=== PATIENT | male | born 1965 | race Caucasian/White ===

== ENCOUNTER 2021-08-12 19:48 | Emergency (ER) | payer SELFPAY ==
[~2021-08-12 19:48] MED LIST: ISOVUE-370 76%-LOCM 1 ML ONE
[2021-08-12 20:31] LABS: #Eosinphils 0.1 thou/uL (0.0-0.7); #Lymphocytes 1.3 thou/uL (1.20-3.40); #Monocytes 0.5 thou/uL (0.11-0.59); #Neutrophils 6.5 thou/uL (1.40-6.50); %Basophils 0.5 % (0.0-1.0); %Eosinophils 0.8 % (0.0-10.0); %Lymphocytes 15.9 % (21.0-51.0); %Monocytes 5.4 % (0.0-10.0); %Neutrophils 77.4 % (42.0-75.0); Hemoglobin 15.2 g/dL (14.0-18.0); Mean Corpuscular HGB CONC 34.8 g/dL (32.0-36.0); Mean Corpuscular Hemoglobin 32.8 pg (27.0-31.0); Mean Corpuscular Volume 94.2 fL (78.0-98.0); Mean Platelet Volume 7.7 fL (7.4-10.4); Platelet Count 222 thou/uL (130-400); RBC Distribution Width 12.2 % (11.5-14.5); Red Blood Cell (RBC) Count 4.64 mill/uL (4.70-6.10); White Blood Cell (WBC) Count 8.4 thou/uL (4.8-10.8)
[2021-08-12 20:59] LABS: Albumin 4.1 g/dL (3.5-5.0)
[2021-08-12 21:00] LABS: Chloride 108 mmol/L (98-107); Potassium 3.5 mmol/L (3.5-5.1); Sodium 141 mmol/L (136-145)
[2021-08-12 21:01] LABS: Calcium 9.2 mg/dL (7.8-10.44); Globulin 3.4 g/dL (2.4-3.5); Glucose 100 mg/dL (70-105); Protein, Total 7.5 g/dL (6.0-8.3)
[2021-08-12 21:03] LABS: Anion Gap 13 mmol/L (10-20); Bilirubin, Total 1.2 mg/dL (0.2-1.2); Carbon Dioxide 24 mmol/L (22-29)
[2021-08-12 21:04] LABS: Alkaline Phosphatase 59 U/L (40-110)
[2021-08-12 21:05] LABS: BUN (Urea Nitrogen) 20 mg/dL (8.4-25.7); Calc. Creatinine Clearance 0 mL/min (70-130)
[2021-08-12 21:06] LABS: AST (SGOT) 26 U/L (5-34)
[2021-08-12 21:07] LABS: ALT (SGPT) 21 U/L (8-55); Lipase 29 U/L (8-78)
== END 2021-08-12 23:11 | disposition home or self-care (01) ==
LOC: ERS 19:48
DX: K43.9 Ventral hernia without obstruction or gangrene (principal); I49.3 Ventricular premature depolarization; Z79.82 Long term (current) use of aspirin; Z79.899 Other long term (current) drug therapy
CPT/HCPCS: 36415; 74177; 80053; 83690; 84484; 85025; 93005; Q9966

== ENCOUNTER 2021-08-14 02:56 | Emergency (ER) | payer SELFPAY ==
[2021-08-14] MEDS ORDERED: Acetaminophen 325 MG TAB ONE (03:40)
== END 2021-08-14 03:43 | disposition home or self-care (01) ==
LOC: ERS 02:56
DX: G47.00 Insomnia, unspecified (principal); Z59.00 Homelessness unspecified; I10 Essential (primary) hypertension; K21.9 Gastro-esophageal reflux disease without esophagitis; Z79.899 Other long term (current) drug therapy
CPT/HCPCS: 99281

== ENCOUNTER 2021-09-13 22:45 | Emergency (ER) | payer MEDICARE, SELFPAY ==
[2021-09-14 00:02] LABS: #Basophils 0.1 thou/uL (0.0-0.2); #Eosinphils 0.3 thou/uL (0.0-0.7); #Lymphocytes 1.4 thou/uL (1.20-3.40); #Monocytes 0.4 thou/uL (0.11-0.59); #Neutrophils 3.7 thou/uL (1.40-6.50); %Basophils 0.9 % (0.0-1.0); %Eosinophils 4.7 % (0.0-10.0); %Neutrophils 64.4 % (42.0-75.0); Hemoglobin 14.4 g/dL (14.0-18.0); Mean Corpuscular HGB CONC 35.8 g/dL (32.0-36.0); Mean Corpuscular Hemoglobin 33.6 pg (27.0-31.0); Mean Corpuscular Volume 93.9 fL (78.0-98.0); Mean Platelet Volume 8.3 fL (7.4-10.4); Platelet Count 156 thou/uL (130-400); Red Blood Cell (RBC) Count 4.28 mill/uL (4.70-6.10); White Blood Cell (WBC) Count 5.8 thou/uL (4.8-10.8)
[2021-09-14 00:20] LABS: ALT (SGPT) 13 U/L (8-55); AST (SGOT) 15 U/L (5-34); Albumin 3.6 g/dL (3.5-5.0); Alkaline Phosphatase 56 U/L (40-110); Anion Gap 16 mmol/L (10-20); BUN (Urea Nitrogen) 9 mg/dL (8.4-25.7); Bilirubin, Total 0.8 mg/dL (0.2-1.2); Calc. Creatinine Clearance 0 mL/min (70-130); Calcium 8.5 mg/dL (7.8-10.44); Carbon Dioxide 21 mmol/L (22-29); Chloride 104 mmol/L (98-107); Estimated GFR 107; Globulin 2.8 g/dL (2.4-3.5); Glucose 103 mg/dL (70-105); Potassium 3.1 mmol/L (3.5-5.1); Protein, Total 6.4 g/dL (6.0-8.3); Sodium 138 mmol/L (136-145)
[2021-09-14] MEDS ORDERED: Ketorolac Tromethamine 30 MG/ML VIAL ONE (01:42)
== END 2021-09-14 01:58 | disposition home or self-care (01) ==
LOC: ERS 22:45
DX: R07.9 Chest pain, unspecified (principal); I10 Essential (primary) hypertension; I48.91 Unspecified atrial fibrillation; K21.9 Gastro-esophageal reflux disease without esophagitis; J45.909 Unspecified asthma, uncomplicated; Z79.899 Other long term (current) drug therapy
CPT/HCPCS: 36415; 71045; 80053; 84484; 85025; 93005; 94760; 96374; J1885

== ENCOUNTER 2021-09-24 02:49 | Emergency (ER) | payer MEDICARE ==
[2021-09-24] MEDS ORDERED: Diazepam 5 MG TAB ONE (03:07)
[2021-09-24] MEDS ORDERED: Ketorolac Tromethamine 30 MG/ML VIAL ONE (03:40)
[2021-09-24 04:03] LABS: #Eosinphils 0.3 thou/uL (0.0-0.7); #Lymphocytes 1.6 thou/uL (1.20-3.40); #Monocytes 0.4 thou/uL (0.11-0.59); #Neutrophils 4.3 thou/uL (1.40-6.50); %Basophils 0.4 % (0.0-1.0); %Lymphocytes 24.9 % (21.0-51.0); %Monocytes 5.5 % (0.0-10.0); %Neutrophils 65.2 % (42.0-75.0); Hemoglobin 14.1 g/dL (14.0-18.0); Mean Corpuscular HGB CONC 35.6 g/dL (32.0-36.0); Mean Corpuscular Hemoglobin 33.6 pg (27.0-31.0); Mean Corpuscular Volume 94.3 fL (78.0-98.0); Mean Platelet Volume 8.8 fL (7.4-10.4); Platelet Count 155 thou/uL (130-400); RBC Distribution Width 12.3 % (11.5-14.5); Red Blood Cell (RBC) Count 4.21 mill/uL (4.70-6.10); White Blood Cell (WBC) Count 6.5 thou/uL (4.8-10.8)
[2021-09-24 04:28] LABS: ALT (SGPT) 13 U/L (8-55); AST (SGOT) 19 U/L (5-34); Albumin 4.1 g/dL (3.5-5.0); Alkaline Phosphatase 49 U/L (40-110); Anion Gap 13 mmol/L (10-20); BUN (Urea Nitrogen) 27 mg/dL (8.4-25.7); Bilirubin, Total 1.2 mg/dL (0.2-1.2); Calc. Creatinine Clearance 0 mL/min (70-130); Calcium 9.1 mg/dL (7.8-10.44); Carbon Dioxide 30 mmol/L (22-29); Chloride 104 mmol/L (98-107); Estimated GFR 69; Glucose 93 mg/dL (70-105); Protein, Total 7.1 g/dL (6.0-8.3); Sodium 144 mmol/L (136-145)
[2021-09-24 04:37] LABS: Potassium 2.8 mmol/L (3.5-5.1)
[2021-09-24] MEDS ORDERED: Potassium Chloride 20 MEQ TAB ONE (04:50)
== END 2021-09-24 05:18 | disposition home or self-care (01) ==
LOC: ERS 02:49
DX: M17.12 Unilateral primary osteoarthritis, left knee (principal); E87.6 Hypokalemia; I10 Essential (primary) hypertension; I48.91 Unspecified atrial fibrillation; K21.9 Gastro-esophageal reflux disease without esophagitis; J45.909 Unspecified asthma, uncomplicated; M06.9 Rheumatoid arthritis, unspecified; Z79.82 Long term (current) use of aspirin; Z79.899 Other long term (current) drug therapy
CPT/HCPCS: 36415; 72170; 80053; 84443; 85025; 96372; J1885

== ENCOUNTER 2021-09-27 19:01 | Emergency (ER) | payer MEDICARE ==
[2021-09-27] MEDS ORDERED: HYDROcodone/Acetaminophen 10/325 mg Tablet ONE (19:45)
[2021-09-27 20:13] LABS: Bilirubin Negative (Negative); Blood, Urine Negative (Negative); Clarity Clear (Clear); Glucose, Urine (Dipstick) Normal (Negative); Ketone, Urine Negative (Negative); Leukocyte Negative Leu/uL (Negative); Nitrite Negative (Negative); Protein, Urine (Dipstick) Negative (Neg-Trace); Specific Gravity, Urine 1.014 (1.002-1.036); Urobilinogen Normal mg/dL (Less than 2)
[2021-09-27 20:20] LABS: #Eosinphils 0.2 thou/uL (0.0-0.7); #Lymphocytes 1.3 thou/uL (1.20-3.40); #Monocytes 0.2 thou/uL (0.11-0.59); #Neutrophils 3.9 thou/uL (1.40-6.50); %Basophils 0.6 % (0.0-1.0); %Eosinophils 3.7 % (0.0-10.0); %Lymphocytes 22.7 % (21.0-51.0); %Monocytes 3.7 % (0.0-10.0); %Neutrophils 69.2 % (42.0-75.0); Hemoglobin 13.7 g/dL (14.0-18.0); Mean Corpuscular HGB CONC 34.6 g/dL (32.0-36.0); Mean Corpuscular Hemoglobin 32.4 pg (27.0-31.0); Mean Corpuscular Volume 93.7 fL (78.0-98.0); Mean Platelet Volume 8.8 fL (7.4-10.4); Platelet Count 145 thou/uL (130-400); RBC Distribution Width 11.9 % (11.5-14.5); Red Blood Cell (RBC) Count 4.21 mill/uL (4.70-6.10); White Blood Cell (WBC) Count 5.6 thou/uL (4.8-10.8)
[2021-09-27 20:41] LABS: ALT (SGPT) 11 U/L (8-55); AST (SGOT) 20 U/L (5-34); Albumin 3.9 g/dL (3.5-5.0); Alkaline Phosphatase 52 U/L (40-110); Anion Gap 11 mmol/L (10-20); BUN (Urea Nitrogen) 12 mg/dL (8.4-25.7); Bilirubin, Total 0.7 mg/dL (0.2-1.2); Calc. Creatinine Clearance 0 mL/min (70-130); Carbon Dioxide 32 mmol/L (22-29); Chloride 101 mmol/L (98-107); Estimated GFR 100; Globulin 2.8 g/dL (2.4-3.5); Glucose 95 mg/dL (70-105); Potassium 3.5 mmol/L (3.5-5.1); Protein, Total 6.7 g/dL (6.0-8.3); Sodium 140 mmol/L (136-145)
== END 2021-09-27 21:45 | disposition home or self-care (01) ==
LOC: ERS 19:01
DX: K42.9 Umbilical hernia without obstruction or gangrene (principal); K43.2 Incisional hernia without obstruction or gangrene; I10 Essential (primary) hypertension; K21.9 Gastro-esophageal reflux disease without esophagitis; I48.91 Unspecified atrial fibrillation; Z79.82 Long term (current) use of aspirin; Z79.899 Other long term (current) drug therapy
CPT/HCPCS: 36415; 80053; 81003; 85025; 99284

== ENCOUNTER 2021-10-02 17:57 | Emergency (ER) | payer MEDICARE ==
[2021-10-02 20:16] LABS: #Eosinphils 0.4 thou/uL (0.0-0.7); #Lymphocytes 1.3 thou/uL (1.20-3.40); #Monocytes 0.3 thou/uL (0.11-0.59); #Neutrophils 3.5 thou/uL (1.40-6.50); %Basophils 0.3 % (0.0-1.0); %Eosinophils 7.3 % (0.0-10.0); %Lymphocytes 23.8 % (21.0-51.0); %Monocytes 4.8 % (0.0-10.0); %Neutrophils 63.7 % (42.0-75.0); Hemoglobin 12.9 g/dL (14.0-18.0); Mean Corpuscular HGB CONC 33.6 g/dL (32.0-36.0); Mean Corpuscular Volume 95.2 fL (78.0-98.0); Mean Platelet Volume 8.6 fL (7.4-10.4); Platelet Count 177 thou/uL (130-400); RBC Distribution Width 11.9 % (11.5-14.5); Red Blood Cell (RBC) Count 4.03 mill/uL (4.70-6.10); White Blood Cell (WBC) Count 5.5 thou/uL (4.8-10.8)
[2021-10-02 20:44] LABS: ALT (SGPT) 24 U/L (8-55); AST (SGOT) 26 U/L (5-34); Albumin 3.9 g/dL (3.5-5.0); Alkaline Phosphatase 57 U/L (40-110); Anion Gap 11 mmol/L (10-20); BUN (Urea Nitrogen) 15 mg/dL (8.4-25.7); Bilirubin, Total 0.5 mg/dL (0.2-1.2); Calc. Creatinine Clearance 0 mL/min (70-130); Calcium 9.1 mg/dL (7.8-10.44); Carbon Dioxide 29 mmol/L (22-29); Chloride 104 mmol/L (98-107); Estimated GFR 102; Globulin 2.7 g/dL (2.4-3.5); Glucose 86 mg/dL (70-105); Protein, Total 6.6 g/dL (6.0-8.3); Sodium 140 mmol/L (136-145)
== END 2021-10-02 21:15 | disposition home or self-care (01) ==
LOC: ERS 17:57
DX: R42 Dizziness and giddiness (principal); K21.9 Gastro-esophageal reflux disease without esophagitis; I10 Essential (primary) hypertension; M06.9 Rheumatoid arthritis, unspecified; Z79.899 Other long term (current) drug therapy
CPT/HCPCS: 36415; 80053; 84484; 85025; 93005

== ENCOUNTER 2021-11-10 01:22 | Emergency (ER) | payer MEDICARE ==
[2021-11-10] MEDS ORDERED: Ondansetron PF 4 MG/2 ML Vial ONE (02:43)
[2021-11-10 03:27] LABS: #Eosinphils 0.3 thou/uL (0.0-0.7); #Lymphocytes 1.6 thou/uL (1.20-3.40); #Monocytes 0.5 thou/uL (0.11-0.59); %Basophils 0.3 % (0.0-1.0); %Lymphocytes 15.2 % (21.0-51.0); %Monocytes 4.7 % (0.0-10.0); %Neutrophils 76.8 % (42.0-75.0); Hemoglobin 14.8 g/dL (14.0-18.0); Mean Corpuscular HGB CONC 36.5 g/dL (32.0-36.0); Mean Corpuscular Hemoglobin 34.1 pg (27.0-31.0); Mean Corpuscular Volume 93.4 fL (78.0-98.0); Mean Platelet Volume 8.2 fL (7.4-10.4); Platelet Count 184 thou/uL (130-400); Red Blood Cell (RBC) Count 4.34 mill/uL (4.70-6.10); White Blood Cell (WBC) Count 10.4 thou/uL (4.8-10.8)
[2021-11-10 03:41] LABS: ALT (SGPT) 33 U/L (8-55); AST (SGOT) 26 U/L (5-34); Albumin 3.8 g/dL (3.5-5.0); Alkaline Phosphatase 56 U/L (40-110); Anion Gap 13 mmol/L (10-20); BUN (Urea Nitrogen) 21 mg/dL (8.4-25.7); Bilirubin, Total 0.8 mg/dL (0.2-1.2); Calc. Creatinine Clearance 0 mL/min (70-130); Calcium 8.8 mg/dL (7.8-10.44); Carbon Dioxide 24 mmol/L (22-29); Chloride 103 mmol/L (98-107); Estimated GFR 100; Globulin 2.9 g/dL (2.4-3.5); Glucose 95 mg/dL (70-105); Lipase 102 U/L (8-78); Potassium 3.3 mmol/L (3.5-5.1); Protein, Total 6.7 g/dL (6.0-8.3); Sodium 137 mmol/L (136-145)
[2021-11-10] MEDS ORDERED: Iopamidol-370 76% 500 ML 1 ML ONE (09:10)
== END 2021-11-10 06:08 | disposition home or self-care (01) ==
LOC: ERS 01:22
DX: R10.31 Right lower quadrant pain (principal); I10 Essential (primary) hypertension; K21.9 Gastro-esophageal reflux disease without esophagitis; Z79.899 Other long term (current) drug therapy
CPT/HCPCS: 74177; 80053; 83690; 85025; 93005; 96374; J2405; Q9967

== ENCOUNTER 2022-05-23 12:01 | Emergency (ER) | payer MEDICARE ==
[2022-05-23 13:36] LABS: #Eosinphils 0.2 thou/uL (0.0-0.7); #Monocytes 0.4 thou/uL (0.11-0.59); #Neutrophils 3.9 thou/uL (1.40-6.50); %Basophils 0.4 % (0.0-1.0); %Eosinophils 4.1 % (0.0-10.0); %Lymphocytes 18.7 % (21.0-51.0); %Monocytes 6.4 % (0.0-10.0); %Neutrophils 70.4 % (42.0-75.0); Hemoglobin 13.6 g/dL (14.0-18.0); Mean Corpuscular Hemoglobin 32.7 pg (27.0-31.0); Mean Corpuscular Volume 93.5 fl (78.0-98.0); Platelet Count 181 10x3/uL (130-400); RBC Distribution Width 12.2 % (11.5-14.5); Red Blood Cell (RBC) Count 4.16 mill/uL (4.70-6.10); White Blood Cell (WBC) Count 5.6 10x3/uL (4.8-10.8)
[2022-05-23 13:59] LABS: ALT (SGPT) 18 U/L (8-55); AST (SGOT) 22 U/L (5-34); Albumin 4.1 g/dL (3.5-5.0); Alkaline Phosphatase 60 U/L (40-110); Anion Gap 11 mmol/L (10-20); BUN (Urea Nitrogen) 12 mg/dL (8.4-25.7); Bilirubin, Total 0.4 mg/dL (0.2-1.2); Calc. Creatinine Clearance 0 mL/min (70-130); Calcium 9.2 mg/dL (7.8-10.44); Carbon Dioxide 26 mmol/L (22-29); Chloride 105 mmol/L (98-107); Estimated GFR 105; Globulin 2.9 g/dL (2.4-3.5); Glucose 86 mg/dL (70-105); Lipase 28 U/L (8-78); Potassium 4.1 mmol/L (3.5-5.1); Sodium 138 mmol/L (136-145)
== END 2022-05-23 17:33 | disposition home or self-care (01) ==
LOC: ERS 12:01
DX: R10.9 Unspecified abdominal pain (principal); I10 Essential (primary) hypertension; I48.91 Unspecified atrial fibrillation; K21.9 Gastro-esophageal reflux disease without esophagitis; Z79.899 Other long term (current) drug therapy
CPT/HCPCS: 36415; 71045; 80053; 83690; 84484; 85025; 93005

== ENCOUNTER 2023-11-07 12:45 | Observation (INO) | payer MEDICARE ==
[2023-11-07] MEDS ORDERED: Nitroglycerin 2% Ointment 1 INCH/1 GM Packet ONE (13:11)
[2023-11-07] MEDS ORDERED: Aspirin Chewable 81 MG TAB ONE (13:11)
[2023-11-07 13:15] LABS: #Basophils 0.03 10x3/uL (0.0-0.2); %Basophils 0.5 % (0.0-1.0); %Eosinophils 2.4 % (0.0-10.0); %Lymphocytes 24.5 % (21.0-51.0); %Monocytes 6.7 % (0.0-10.0); %Neutrophils 65.7 % (42.0-75.0); Hematocrit 40.6 % (42.0-52.0); Hemoglobin 14.9 g/dL (14.0-18.0); Mean Corpuscular HGB CONC 36.7 g/dL (32.0-36.0); Mean Corpuscular Hemoglobin 32.4 pg (27.0-31.0); Mean Corpuscular Volume 88.3 fL (78.0-98.0); Mean Platelet Volume 10.6 fL (7.4-10.4); Platelet Count 205 10x3/uL (130-400); RBC Distribution Width 12.4 % (11.5-14.5)
[2023-11-07 13:24] LABS: ALT (SGPT) 14 U/L (8-55); AST (SGOT) 20 U/L (5-34); Albumin 4.2 g/dL (3.5-5.0); Alkaline Phosphatase 55 U/L (40-110); Anion Gap 13 mmol/L (10-20); BUN (Urea Nitrogen) 17 mg/dL (8.4-25.7); Bilirubin, Total 0.8 mg/dL (0.2-1.2); Calc. Creatinine Clearance 0 mL/min (70-130); Calcium 8.7 mg/dL (7.8-10.44); Carbon Dioxide 24 mmol/L (22-29); Chloride 107 mmol/L (98-107); Estimated GFR 91; Globulin 3.4 g/dL (2.4-3.5); Glucose 98 mg/dL (70-105); Lipase 175 U/L (8-78); Potassium 3.3 mmol/L (3.5-5.1); Protein, Total 7.6 g/dL (6.0-8.3); Sodium 141 mmol/L (136-145)
[2023-11-07 13:29] LABS: Troponin I Less than 0.010 ng/mL (< 0.028)
[2023-11-07] MEDS ORDERED: Metoprolol Tartrate 5 MG (5 mL) VIAL ONE (13:57)
[2023-11-07] MEDS ORDERED: Metoprolol Tartrate 5 MG (5 mL) VIAL IVP PRN (15:52)
[2023-11-07] MEDS ORDERED: Nitroglycerin 0.4 MG TAB (25 Tab Bottle) SL PRN (15:52)
[2023-11-07 16:45] LABS: Magnesium 1.9 mg/dL (1.6-2.6)
[2023-11-07 16:55] LABS: Troponin I 0.015 ng/mL (< 0.028)
[2023-11-07] MEDS: Magnesium 2 GM/50 ML(in water) 2 GM in Premix 1 BAG IVPB SCH (18:29)
[2023-11-07] MEDS: Potassium Chloride 20 MEQ TAB PO SCH (18:29)
[2023-11-07] MEDS: Metoprolol Tartrate 25 MG TAB PO SCH (21:29)
[2023-11-08 05:45] LABS: Lipase 77 U/L (8-78); Magnesium 2.3 mg/dL (1.6-2.6); Potassium 3.3 mmol/L (3.5-5.1)
[2023-11-08] MEDS ORDERED: Aspirin 81 mg Enteric Coated Tablet PO SCH (09:00)
[2023-11-08] MEDS ORDERED: Regadenoson 0.4 MG/5 ML SYRINGE ONE (10:27)
[2023-11-08] MEDS: Aspirin 325 mg Enteric Coated Tablet PO SCH (12:01)
[2023-11-08] MEDS: Potassium Chloride 20 MEQ TAB PO SCH (12:03)
[2023-11-08 12:39] VITALS: BP 175/88; TEMP 97.8
== END 2023-11-08 16:03 | disposition home or self-care (01) ==
LOC: ERS 12:45 → 2SW 16:51
PROVIDERS: ADMIT Internal Medicine; ATTEND Internal Medicine
DX: R07.2 Precordial pain (principal); I48.0 Paroxysmal atrial fibrillation; J45.909 Unspecified asthma, uncomplicated; I10 Essential (primary) hypertension; E87.6 Hypokalemia; K21.9 Gastro-esophageal reflux disease without esophagitis; F41.9 Anxiety disorder, unspecified; Z90.49 Acquired absence of other specified parts of digestive tract; Z98.890 Other specified postprocedural states; Z79.82 Long term (current) use of aspirin
CPT/HCPCS: 71045; 78452; 80053; 83690 ×2; 83735 ×2; 83880; 84132; 84484 ×2; 85025; 93005; 93017; 96374; 96376; 99285; A9502; G0378 ×3; J2785 ×2; J3475; 36415

== ENCOUNTER 2024-03-14 01:44 | Emergency (ER) | payer MEDICARE ==
[2024-03-14] MEDS ORDERED: hydrALAZINE 20 MG/ML VIAL ONE (01:54)
[2024-03-14] MEDS ORDERED: Nitroglycerin 2% Ointment 1 INCH/1 GM Packet ONE (01:55)
[2024-03-14 02:30] LABS: #Basophils 0.04 10x3/uL (0.0-0.2); %Basophils 0.7 % (0.0-1.0); %Eosinophils 4.4 % (0.0-10.0); %Lymphocytes 24.1 % (21.0-51.0); %Monocytes 7.5 % (0.0-10.0); %Neutrophils 62.9 % (42.0-75.0); Hematocrit 41.8 % (42.0-52.0); Hemoglobin 15.2 g/dL (14.0-18.0); Mean Corpuscular HGB CONC 36.4 g/dL (32.0-36.0); Mean Corpuscular Hemoglobin 32.4 pg (27.0-31.0); Mean Corpuscular Volume 89.1 fL (78.0-98.0); Mean Platelet Volume 10.5 fL (7.4-10.4); Platelet Count 192 10x3/uL (130-400); RBC Distribution Width 12.3 % (11.5-14.5); Red Blood Cell (RBC) Count 4.69 mill/uL (4.70-6.10)
[2024-03-14 02:41] LABS: ALT (SGPT) 14 U/L (8-55); AST (SGOT) 16 U/L (5-34); Albumin 3.8 g/dL (3.5-5.0); Alkaline Phosphatase 53 U/L (40-110); Anion Gap 12 mmol/L (10-20); BUN (Urea Nitrogen) 18 mg/dL (8.4-25.7); Bilirubin, Total 0.7 mg/dL (0.2-1.2); Calc. Creatinine Clearance 0 mL/min (70-130); Calcium 8.9 mg/dL (7.8-10.44); Carbon Dioxide 28 mmol/L (22-29); Chloride 102 mmol/L (98-107); Estimated GFR 102; Globulin 3.3 g/dL (2.4-3.5); Glucose 90 mg/dL (70-105); Potassium 3.5 mmol/L (3.5-5.1); Protein, Total 7.1 g/dL (6.0-8.3); Sodium 138 mmol/L (136-145)
[2024-03-14 03:09] LABS: Troponin I Less than 0.010 ng/mL (< 0.028)
[2024-03-14 05:07] LABS: Troponin I Less than 0.010 ng/mL (< 0.028)
== END 2024-03-14 05:52 | disposition home or self-care (01) ==
LOC: ERS 01:44
DX: R07.89 Other chest pain (principal); I16.0 Hypertensive urgency; I10 Essential (primary) hypertension
CPT/HCPCS: 71045; 80053; 84484 ×2; 85025; 93005; J0360; 36415; 96374